=== PATIENT | male | born 1955 | race Caucasian/White ===

== ENCOUNTER 2020-07-22 17:37 | Emergency (ER) | payer OTHER ==
[~2020-07-22] VITALS: Ht 180.3 cm; Wt 84.0 kg
--- NOTE | 2020-07-22 18:18 | PHYS DOC ---
Past Medical History Past Medical History: Unknown Past Surgical History: Other Additional Past Surgical Histo: UNKNOWN Smoking Status: Unknown if ever smoked Alcohol Use: None Additional Information: UNKNOWN Social History Narrative: UNKNOWN General Adult EDM: Chief Complaint: ALTERED MENTAL STATUS HPI: HPI: Patient is a 64 year old male presents via ems for altered mental status. Neighbors wound patient laying down in his yard. It was suspected that patient feel off his porch-- approximately 3ft. Patient is alert but confused. Knows only his name. Patient does state he drank alcohol tonight. Moves all extremities without deformities. Abrasion on right anterior knee. Review of Systems: Review of Systems: unable to obtain history due to altered mental status Heart Score: Risk Factors: Risk Factors: DM, Current or recent (<one month) smoker, HTN, HLP, family history of CAD, obesity. Risk Scores: Score 0 - 3: 2.5% MACE over next 6 weeks - Discharge Home Score 4 - 6: 20.3% MACE over next 6 weeks - Admit for Clinical Observation Score 7 - 10: 72.7% MACE over next 6 weeks - Early Invasive Strategies Allergies: Allergies: Allergies Coded Allergies Type Severity Reaction Last Updated Verified Unable to Assess 07/22/20 No Physical Exam: PE: Constitutional: Well developed, well nourished, no acute distress, non-toxic appearance. [] HENT: Normocephalic, atraumatic, bilateral external ears normal, oropharynx moist, no oral exudates, nose normal. [] Eyes: PERRLA, EOMI, conjunctiva normal, no discharge. [] Neck: Normal range of motion, no tenderness, supple, no stridor. [] Cardiovascular:Heart rate regular rhythm, no murmur [] Lungs & Thorax: Bilateral breath sounds clear to auscultation [] Abdomen: Bowel sounds normal, soft, no tenderness, no masses, no pulsatile masses. [] Skin: Warm, dry, no erythema, no rash. [] Back: No tenderness, no CVA tenderness. [] Extremities: No tenderness, no cyanosis, no clubbing, ROM intact, no edema. [] Neurologic: Alert and oriented X 3, normal motor function, normal sensory function, no focal deficits noted. [] Psychologic: Affect normal, judgement normal, mood normal. [] Current Patient Data: Vital Signs: Vital Signs Date Time Temp Pulse Resp B/P (MAP) Pulse Ox O2 Delivery O2 Flow Rate FiO2 07/22/20 17:47 98.6 93 20 137/75 (95) 97 Room Air 98.6 EKG: EKG: [] Radiology/Procedures: Radiology/Procedures: [] Course & Med Decision Making: Course & Med Decision Making Pertinent Labs and Imaging studies reviewed. (See chart for details) []Patient observed. 2151-patient re-evaluated a/ox4 ambulated with steady gait. Patient to be discharged home. Anahi Disclaimer: Anahi Disclaimer: This electronic medical record was generated, in whole or in part, using a voice recognition dictation system. Departure Departure Impression: Primary Impression: Altered mental state Additional Impression: Alcohol intoxication Disposition: 01 DC HOME SELF CARE/HOMELESS Condition: STABLE Patient Instructions: Alcohol Intoxication KIET LIRIANO DO Jul 22, 2020 18:18
--- NOTE | 2020-07-22 18:36 | RAD ---
PQRS Compliance Statement: One or more of the following individualized dose reduction techniques were utilized for this examination: 1. Automated exposure control 2. Adjustment of the mA and/or kV according to patient size 3. Use of iterative reconstruction technique CT head without contrast 07/22/2020 5:57 PM INDICATION: Fall, altered mental status COMPARISON: None available TECHNIQUE: Multiple axial CT images of the head were obtained from skull base through the vertex without intravenous contrast. FINDINGS: Head: Ventricles, sulci and basal cisterns are prominent compatible with mild generalized cerebral volume loss. Low-attenuation in the periventricular white matter is suggestive of chronic small vessel ischemic changes. There is no hydrocephalus. Wagner-white matter differentiation is normal. There is no acute intracranial hemorrhage. There is no mass, mass effect or midline shift. Posterior fossa is normal in appearance. Visualized portions of the orbits are normal. Minimal aerated mucus identified in the lateral left maxillary sinus. Mastoid air cells are well aerated. Scalp and calvaria are normal. IMPRESSION: No acute intracranial hemorrhage. Mild generalized cerebral volume loss. Low-attenuation in the periventricular white matter is suggestive of chronic small vessel ischemic changes. Electronically signed by: Malena Andrade MD (07/22/2020 6:33 PM) [facility]
[2020-07-22 19:05] LABS: BASO # 0.1 x10^3/uL (0.0-0.2); BASO % 1 % (0-3); EOS % 1 % (0-3); HEMOGLOBIN 14.1 g/dL (13.0-17.5); LYMPH % 28 % (24-48); MEAN CORPUSCULAR HEMOGLOBIN 31 pg (25-35); MEAN CORPUSCULAR HGB CONC 34 g/dL (31-37); MEAN CORPUSCULAR VOLUME 91 fL (79-100); MONO # 0.5 x10^3/uL (0.0-1.1); MONO % 7 % (0-9); NEUT # 4.5 x10^3/uL (1.8-7.7); NEUT % 64 % (31-73); PLATELET COUNT 278 x10^3/uL (140-400); RED BLOOD COUNT 4.53 x10^6/uL (4.30-5.70); RED CELL DISTRIBUTION WIDTH 13.1 % (11.5-14.5); WHITE BLOOD COUNT 7.2 x10^3/uL (4.0-11.0)
[2020-07-22 19:13] LABS: CALCIUM 8.7 mg/dL (8.5-10.1); CREATININE 0.9 mg/dL (0.7-1.3); POTASSIUM 4.1 mmol/L (3.5-5.1)
[2020-07-22 19:20] LABS: ALBUMIN 3.8 g/dL (3.4-5.0); ALBUMIN/GLOBULIN RATIO 1.1 (1.0-1.7); TOTAL BILIRUBIN 0.1 mg/dL (0.2-1.0); TOTAL PROTEIN 7.3 g/dL (6.4-8.2)
[2020-07-22 22:12] VITALS: BP 133/56
== END 2020-07-22 22:41 | disposition home or self-care (01) ==
LOC: ER 17:37
DX: F10.229 Alcohol dependence with intoxication, unspecified (principal); R41.82 Altered mental status, unspecified
CPT/HCPCS: 36415; 70450; 80053; 85025; 99285; G0480

== ENCOUNTER 2020-08-22 10:26 | Inpatient (IN) | payer OTHER ==
[~2020-08-22] VITALS: Ht 180.3 cm; Wt 95.0 kg
[2020-08-22 10:45] LABS: BASO # 0.1 x10^3/uL (0.0-0.2); BASO % 1 % (0-3); EOS % 0 % (0-3); HEMATOCRIT 36.3 % (39.0-53.0); HEMOGLOBIN 11.8 g/dL (13.0-17.5); LYMPH # 0.5 x10^3/uL (1.0-4.8); LYMPH % 10 % (24-48); MEAN CORPUSCULAR HEMOGLOBIN 30 pg (25-35); MEAN CORPUSCULAR HGB CONC 33 g/dL (31-37); MEAN CORPUSCULAR VOLUME 93 fL (79-100); MONO # 0.5 x10^3/uL (0.0-1.1); MONO % 8 % (0-9); NEUT # 4.6 x10^3/uL (1.8-7.7); NEUT % 81 % (31-73); PLATELET COUNT 114 x10^3/uL (140-400); RED BLOOD COUNT 3.91 x10^6/uL (4.30-5.70); RED CELL DISTRIBUTION WIDTH 15.2 % (11.5-14.5); WHITE BLOOD COUNT 5.6 x10^3/uL (4.0-11.0)
[2020-08-22 10:57] LABS: BILIRUBIN,URINE NEGATIVE (NEG); CLARITY,URINE CLEAR; COLOR,URINE AMBER; NITRITE,URINE NEGATIVE (NEG); PH,URINE 5.5 (<5.0-8.0); PROTEIN,URINE 100 mg/dL (NEG-TRACE)
[2020-08-22] MEDS ORDERED: IV NORMAL SALINE 1000ML BAG 1,000 ML IV ONE ×2 (11:00)
[2020-08-22 11:03] LABS: AMPHETAMINE/METHAMPHETAMINE NEG (NEG); BARBITURATES NEG (NEG); BENZODIAZEPINES NEG (NEG); CANNABINOIDS NEG (NEG); COCAINE NEG (NEG); METHADONE NEG (NEG); OPIATES NEG (NEG); PHENCYCLIDINE NEG (NEG)
[2020-08-22] MEDS: NOREPINEPHRINE VIAL 8 MG in IV DEXTROSE 5% 250 ML IV PRN ×4 (11:06→17:48)
[2020-08-22 11:07] LABS: BACTERIA,URINE 0 /HPF (0-FEW); WBC,URINE 0 /HPF (0-4)
[2020-08-22] MEDS ORDERED: EPINEPHrine SYRINGE 1 MG/10 ML SYRINGE ONE (11:07)
[2020-08-22] MEDS: MIDAZOLAM 100mg/100ml NS BAG 100 ML IV PRN ×2 (11:10→15:18)
[2020-08-22 11:14] LABS: ALBUMIN 3.4 g/dL (3.4-5.0); ALBUMIN/GLOBULIN RATIO 1.1 (1.0-1.7); CALCIUM 7.6 mg/dL (8.5-10.1); CREATININE 2.5 mg/dL (0.7-1.3); GFR 26.1; POTASSIUM 4.1 mmol/L (3.5-5.1); TOTAL BILIRUBIN 0.9 mg/dL (0.2-1.0); TOTAL PROTEIN 6.4 g/dL (6.4-8.2)
--- NOTE | 2020-08-22 11:20 | RAD ---
AP chest. HISTORY: Intubated AP view was taken of the chest. Endotracheal tube is in good position at the level aortic arch. NG tube extends into the stomach. There are slight left perihilar infiltrates although mild chronic interstitial changes possible.. There is no old study for comparison. There is no pneumothorax or pleural effusion. IMPRESSION: 1. Endotracheal tube and NG tube in good position. 2. Slight left perihilar infiltrates versus mild chronic interstitial change. Electronically signed by: Jovan Garner MD (08/22/2020 11:17 AM) [id number]
--- NOTE | 2020-08-22 12:07 | ED.ADGEN ---
Past Medical History Past Medical History: Unknown Past Surgical History: Other Additional Past Surgical Histo: UNKNOWN Smoking Status: Unknown if ever smoked Alcohol Use: None General Adult EDM: Chief Complaint: ALTERED MENTAL STATUS HPI: HPI: Patient is a 64 year old male brought in by EMS from home. Patient's friends found him down in supine position in his home. Per EMS report nobody had talked over the past few weeks. Patient has a GCS of 3, agonal breathing, signs of prolonged downtime due to multiple pressure sores. History otherwise limited due to acuity of patient's condition. No previous medical history on file, no known family or contacts. Review of Systems: Review of Systems: Unable to assess due to patient condition Current Medications: Current Medications Medications (Trade) Dose Ordered Sig/Mery Start Time Stop Time Status Last Admin Dose Admin Epinephrine HCl (EPINEPHrine SYRINGE) 1 mg STK-MED ONCE 08/22/20 11:07 08/22/20 11:08 DC Fentanyl Citrate (Fentanyl 2ml Vial) 50 mcg PRN Q1HR PRN 08/22/20 12:30 08/23/20 12:29 08/22/20 12:30 50 MCG Midazolam HCl 100 ml @ 0 mls/hr CONT PRN PRN 08/22/20 11:00 Norepinephrine Bitartrate 8 mg/ Dextrose 258 ml @ 18.383 mls/ hr CONT PRN PRN 08/22/20 10:30 Allergies: Allergies: Allergies Coded Allergies Type Severity Reaction Last Updated Verified Unable to Assess 07/22/20 No Physical Exam: PE: Constitutional: Well developed, well nourished, unresponsive HENT: Mild swelling around right eye but no other signs of trauma Eyes: Subconjunctival hemorrhage of right eye, right pupil 5 mm, left pupil 3 mm Neck: Normal range of motion, no tenderness, supple, no stridor. [] Cardiovascular:Heart rate regular rhythm, no murmur [] Lungs & Thorax: Lateral coarse breath sounds Abdomen: Soft, nondistended Skin: Erythematous blanching areas consistent with pressure ulcers on right face, right shoulder, grate-like lesions on abdomen, contusions to bilateral knees Back: No deformities Extremities: No deformity Neurologic: GCS Psychologic: Unable to assess Current Patient Data: Labs: Laboratory Tests Test 08/22/20 10:31 08/22/20 10:40 White Blood Count 5.6 x10^3/uL (4.0-11.0) Red Blood Count 3.91 x10^6/uL (4.30-5.70) L Hemoglobin 11.8 g/dL (13.0-17.5) L Hematocrit 36.3 % (39.0-53.0) L Mean Corpuscular Volume 93 fL (79-100) Mean Corpuscular Hemoglobin 30 pg (25-35) Mean Corpuscular Hemoglobin Concent 33 g/dL (31-37) Red Cell Distribution Width 15.2 % (11.5-14.5) H Platelet Count 114 x10^3/uL (140-400) L Neutrophils (%) (Auto) 81 % (31-73) H Lymphocytes (%) (Auto) 10 % (24-48) L Monocytes (%) (Auto) 8 % (0-9) Eosinophils (%) (Auto) 0 % (0-3) Basophils (%) (Auto) 1 % (0-3) Neutrophils # (Auto) 4.6 x10^3/uL (1.8-7.7) Lymphocytes # (Auto) 0.5 x10^3/uL (1.0-4.8) L Monocytes # (Auto) 0.5 x10^3/uL (0.0-1.1) Eosinophils # (Auto) 0.0 x10^3/uL (0.0-0.7) Basophils # (Auto) 0.1 x10^3/uL (0.0-0.2) Prothrombin Time 15.4 SEC (11.7-14.0) H Prothrombin Time INR 1.3 (0.8-1.1) H Sodium Level 128 mmol/L (136-145) L Potassium Level 4.1 mmol/L (3.5-5.1) Chloride Level 84 mmol/L (98-107) L Carbon Dioxide Level 7 mmol/L (21-32) *L Anion Gap 37 (6-14) H Blood Urea Nitrogen 48 mg/dL (8-26) H Creatinine 2.5 mg/dL (0.7-1.3) H Estimated GFR (Cockcroft-Gault) 26.1 BUN/Creatinine Ratio 19 (6-20) Glucose Level 169 mg/dL (70-99) H Lactic Acid Level 6.8 mmol/L (0.4-2.0) *H Calcium Level 7.6 mg/dL (8.5-10.1) L Total Bilirubin 0.9 mg/dL (0.2-1.0) Aspartate Amino Transferase (AST) 471 U/L (15-37) H Alanine Aminotransferase (ALT) 126 U/L (16-63) H Alkaline Phosphatase 90 U/L (46-116) Ammonia 73 mcmol/L (11-34) H Troponin I Quantitative 0.062 ng/mL (0.000-0.055) Total Protein 6.4 g/dL (6.4-8.2) Albumin 3.4 g/dL (3.4-5.0) Albumin/Globulin Ratio 1.1 (1.0-1.7) Urine Collection Type Unknown Urine Color Ro Urine Clarity Clear Urine pH 5.5 (<5.0-8.0) Urine Specific [place] 1.015 (1.000-1.030) Urine Protein 100 mg/dL (NEG-TRACE) Urine Glucose (UA) Negative mg/dL (NEG) Urine Ketones (Stick) 15 mg/dL (NEG) Urine Blood Large (NEG) Urine Nitrite Negative (NEG) Urine Bilirubin Negative (NEG) Urine Urobilinogen Dipstick 1.0 mg/dL (0.2 mg/dL) Urine Leukocyte Esterase Negative (NEG) Urine RBC 6-10 /HPF (0-2) Urine WBC 0 /HPF (0-4) Urine Bacteria 0 /HPF (0-FEW) Urine Opiates Screen Neg (NEG) Urine Methadone Screen Neg (NEG) Urine Barbiturates Neg (NEG) Urine Phencyclidine Screen Neg (NEG) Urine Amphetamine/Methamphetamine Neg (NEG) Urine Benzodiazepines Screen Neg (NEG) Urine Cocaine Screen Neg (NEG) Urine Cannabinoids Screen Neg (NEG) Urine Ethyl Alcohol Pos (NEG) Laboratory Tests 08/22/20 10:31 Laboratory Tests 08/22/20 10:31 Vital Signs: Vital Signs Date Time Temp Pulse Resp B/P (MAP) Pulse Ox O2 Delivery O2 Flow Rate FiO2 08/22/20 12:40 96 Ventilator 08/22/20 12:30 30 08/22/20 10:26 85.8 64 111/62 (78) 15.0 85.8 EKG: EKG: Sinus rhythm, heart rate 62, Q waves present in leads II, III, and aVF. T wave inversion in lead III, no signs of ST elevation or depression, normal intervals, no ectopy, normal axis [] Heart Score: Risk Factors: Risk Factors: DM, Current or recent (<one month) smoker, HTN, HLP, family history of CAD, obesity. Risk Scores: Score 0 - 3: 2.5% MACE over next 6 weeks - Discharge Home Score 4 - 6: 20.3% MACE over next 6 weeks - Admit for Clinical Observation Score 7 - 10: 72.7% MACE over next 6 weeks - Early Invasive Strategies Radiology/Procedures: Radiology/Procedures: EXAM: CT Head without IV contrast INDICATION: fall TECHNIQUE: Multi-detector row CT images were obtained of the head without the use of IV contrast. All CT scans performed at this facility utilize dose optimization techniques as appropriate to the exam, including the following: Automated exposure control and adjustment of the mA and/or KV according to patient size (this includes techniques or standardized protocols for targeted exams where dose is indication/reason for exam). COMPARISON: Noncontrast head CT 07/22/2020 FINDINGS: BRAIN PARENCHYMA: Posterior right temporal lobe intraparenchymal hemorrhage is present along with loss of hughes-white differentiation in the right occipital lobe consistent with an evolving acute PLATINUM AND PALLADIUM KETTLE TENDER territory infarct. Additional areas of abnormal hypoattenuation are present involving the majority of the right cerebral hemisphere, the paracentral superior left frontal lobe, the brainstem and the majority of the left cerebellum. There is subfalcine herniation with 2.6 cm of [id number] midline shift. VENTRICLES & EXTRA-AXIAL SPACES: The right lateral ventricle is almost completely effaced. The left lateral ventricle is slitlike in the body and dilated in the occipital horn. A fluid fluid level is present in the dilated left occipital horn, consistent with evolving blood. The basal cisterns almost completely effaced acute hemorrhage is present in the ambient cisterns there is a 2 cm deep evolving acute subdural hematoma. ORBITS: Orbital contents are unremarkable. SINUSES: Air-fluid levels in the bilateral paranasal sinuses are present. OSSEOUS & SOFT TISSUES: No acute fracture is identified. IMPRESSION: Extensive changes of hypoxic ischemic encephalopathy involving the right greater than left cerebral hemispheres, brainstem and left cerebellum, along with intraparenchymal hemorrhage in the right temporal lobe as well as extensive subarachnoid hemorrhage and a large right subdural hematoma associated with marked right to left midline shift. EXAM: CT Cervical Spine without IV contrast INDICATION: Reason: fall / Spl. Instructions: / History: TECHNIQUE: Multi-detector row CT images were obtained through the cervical spine without the use of IV contrast. Post-processing sagittal and coronal reconstructed images were obtained for interpretation. All CT scans performed at this facility utilize dose optimization techniques as appropriate to the exam, including the following: Automated exposure control and adjustment of the mA and/or KV according to patient size (this includes techniques or standardized protocols for targeted exams where dose is indication/reason for exam). COMPARISON: None FINDINGS: CRANIOCERVICAL JUNCTION: Unremarkable. ALIGNMENT: Alignment is within normal limits. OSSEOUS: No evidence of fracture or bone destruction. DISC SPACES: Degenerative changes at C5-C6. FACET JOINTS: Mild bilateral facet hypertrophy, more conspicuous on the left at the C3-C4 and C4-C5 levels. SPINAL CANAL: Unremarkable. NEUROFORAMINA: Unremarkable. SOFT TISSUES: Patient is intubated and has an enteric tube in place. Coronary calcifications are incidentally noted. IMPRESSION: No acute findings on CT of the cervical spine. EXAM: CT Chest, Abdomen, and Pelvis without IV contrast INDICATION: Reason: fall / Spl. Instructions: / History: TECHNIQUE: Multi-detector row CT images were acquired from the thoracic inlet through the ischial tuberosities with the use of IV contrast. Sagittal and coronal images were acquired from the transaxial data. All CT scans performed at this facility utilize dose optimization techniques as appropriate to the exam, including the following: Automated exposure control and adjustment of the mA and/or KV according to patient size (this includes techniques or standardized protocols for targeted exams where dose is indication/reason for exam). IV CONTRAST: Not administered ORAL CONTRAST: Not administered COMPARISON: None FINDINGS: CHEST: CARDIOVASCULAR: Dense coronary calcifications. Normal heart size. No pericardial effusion. Normal caliber thoracic aorta with scattered calcifications. No aneurysm or intramural hematoma shown. MEDIASTINUM & NATALIE: No adenopathy or masses. Patient is intubated. ET tube terminates 1.8 cm above the eduardo, likely in satisfactory position. LUNGS: Minimal paraseptal pattern emphysematous changes in the upper lobes. Bilateral patchy groundglass opacities. Mild diffuse peribronchial thickening also noted. PLEURAL SPACE: No pleural effusions or pneumothorax. OSSEOUS & SOFT TISSUE: Multiple old anterior left greater than right rib fractures. ABDOMEN/PELVIS: LIVER: Diffuse hypoattenuation, compatible fatty infiltration.. BILIARY SYSTEM: Gallbladder is unremarkable. Bile ducts are not dilated. PANCREAS: Minimal peripancreatic stranding, nonspecific but could reflect pancreatitis in the appropriate clinical context. No ductal dilation. No fluid collection. SPLEEN: Unremarkable ADRENALS: Unremarkable KIDNEYS & URETERS: Unremarkable BLADDER: Contains Murphy catheter, and partially decompressed. REPRODUCTIVE ORGANS: Unremarkable GASTROINTESTINAL: Fluid-filled stomach. Enteric tube terminates in the distal gastric body. Stomach, small bowel, and colon are otherwise unremarkable. The appendix is normal. MESENTERY/PERITONEUM/RETROPERITONEUM: Unremarkable VASCULAR: Scattered arterial calcifications. No aneurysm. LYMPH NODES: No adenopathy OSSEOUS & SOFT TISSUES: Unremarkable IMPRESSION: 1. Multifocal bilateral patchy groundglass opacities in the lungs, nonspecific and could reflect aspiration pneumonitis. Atypical pneumonia is not excluded. 2. Enteric tube placement and endotracheal intubation in apparent satisfactory position. EXAM: CT Head without IV contrast INDICATION: fall TECHNIQUE: Multi-detector row CT images were obtained of the head without the use of IV contrast. All CT scans performed at this facility utilize dose optimization techniques as appropriate to the exam, including the following: Automated exposure control and adjustment of the mA and/or KV according to patient size (this includes techniques or standardized protocols for targeted exams where dose is indication/reason for exam). COMPARISON: Noncontrast head CT 07/22/2020 FINDINGS: BRAIN PARENCHYMA: Posterior right temporal lobe intraparenchymal hemorrhage is present along with loss of hughes-white differentiation in the right occipital lobe consistent with an evolving acute PLATINUM AND PALLADIUM KETTLE TENDER territory infarct. Additional areas of abnormal hypoattenuation are present involving the majority of the right cerebral hemisphere, the paracentral superior left frontal lobe, the brainstem and the majority of the left cerebellum. There is subfalcine herniation with 2.6 cm of [id number] midline shift. VENTRICLES & EXTRA-AXIAL SPACES: The right lateral ventricle is almost completely effaced. The left lateral ventricle is slitlike in the body and dilated in the occipital horn. A fluid fluid level is present in the dilated left occipital horn, consistent with evolving blood. The basal cisterns almost completely effaced acute hemorrhage is present in the ambient cisterns there is a 2 cm deep evolving acute subdural hematoma. ORBITS: Orbital contents are unremarkable. SINUSES: Air-fluid levels in the bilateral paranasal sinuses are present. OSSEOUS & SOFT TISSUES: No acute fracture is identified. IMPRESSION: Extensive changes of hypoxic ischemic encephalopathy involving the right greater than left cerebral hemispheres, brainstem and left cerebellum, along with intraparenchymal hemorrhage in the right temporal lobe as well as extensive subarachnoid hemorrhage and a large right subdural hematoma associated with marked right to left midline shift. EXAM: CT Cervical Spine without IV contrast INDICATION: Reason: fall / Spl. Instructions: / History: TECHNIQUE: Multi-detector row CT images were obtained through the cervical spine without the use of IV contrast. Post-processing sagittal and coronal reconstructed images were obtained for interpretation. All CT scans performed at this facility utilize dose optimization techniques as appropriate to the exam, including the following: Automated exposure control and adjustment of the mA and/or KV according to patient size (this includes techniques or standardized protocols for targeted exams where dose is indication/reason for exam). COMPARISON: None FINDINGS: CRANIOCERVICAL JUNCTION: Unremarkable. ALIGNMENT: Alignment is within normal limits. OSSEOUS: No evidence of fracture or bone destruction. DISC SPACES: Degenerative changes at C5-C6. FACET JOINTS: Mild bilateral facet hypertrophy, more conspicuous on the left at the C3-C4 and C4-C5 levels. SPINAL CANAL: Unremarkable. NEUROFORAMINA: Unremarkable. SOFT TISSUES: Patient is intubated and has an enteric tube in place. Coronary calcifications are incidentally noted. IMPRESSION: No acute findings on CT of the cervical spine. EXAM: CT Chest, Abdomen, and Pelvis without IV contrast INDICATION: Reason: fall / Spl. Instructions: / History: TECHNIQUE: Multi-detector row CT images were acquired from the thoracic inlet through the ischial tuberosities with the use of IV contrast. Sagittal and coronal images were acquired from the transaxial data. All CT scans performed at this facility utilize dose optimization techniques as appropriate to the exam, including the following: Automated exposure control and adjustment of the mA and/or KV according to patient size (this includes techniques or standardized protocols for targeted exams where dose is indication/reason for exam). IV CONTRAST: Not administered ORAL CONTRAST: Not administered COMPARISON: None FINDINGS: CHEST: CARDIOVASCULAR: Dense coronary calcifications. Normal heart size. No pericardial effusion. Normal caliber thoracic aorta with scattered calcifications. No aneurysm or intramural hematoma shown. MEDIASTINUM & NATALIE: No adenopathy or masses. Patient is intubated. ET tube terminates 1.8 cm above the eduardo, likely in satisfactory position. LUNGS: Minimal paraseptal pattern emphysematous changes in the upper lobes. Bilateral patchy groundglass opacities. Mild diffuse peribronchial thickening also noted. PLEURAL SPACE: No pleural effusions or pneumothorax. OSSEOUS & SOFT TISSUE: Multiple old anterior left greater than right rib fractures. ABDOMEN/PELVIS: LIVER: Diffuse hypoattenuation, compatible fatty infiltration.. BILIARY SYSTEM: Gallbladder is unremarkable. Bile ducts are not dilated. PANCREAS: Minimal peripancreatic stranding, nonspecific but could reflect pancreatitis in the appropriate clinical context. No ductal dilation. No fluid collection. SPLEEN: Unremarkable ADRENALS: Unremarkable KIDNEYS & URETERS: Unremarkable BLADDER: Contains Murphy catheter, and partially decompressed. REPRODUCTIVE ORGANS: Unremarkable GASTROINTESTINAL: Fluid-filled stomach. Enteric tube terminates in the distal gastric body. Stomach, small bowel, and colon are otherwise unremarkable. The appendix is normal. MESENTERY/PERITONEUM/RETROPERITONEUM: Unremarkable VASCULAR: Scattered arterial calcifications. No aneurysm. LYMPH NODES: No adenopathy OSSEOUS & SOFT TISSUES: Unremarkable IMPRESSION: 1. Multifocal bilateral patchy groundglass opacities in the lungs, nonspecific and could reflect aspiration pneumonitis. Atypical pneumonia is not excluded. 2. Enteric tube placement and endotracheal intubation in apparent satisfactory position. [] Impression: Patient intubated with 7.5 ET tube, MAC 4 glide scope by computer numerical control operator student under my supervision. Patient was sedated and paralyzed with etomidate and succinylcholine. Course & Med Decision Making: Course & Med Decision Making Pertinent Labs and Imaging studies reviewed. (See chart for details) Discussed patient with neurosurgery, they do not believe that any intervention will be beneficial to the patient. Discussed with neurology who will follow, admitted to ICU. [] Anahi Disclaimer: Anahi Disclaimer: This electronic medical record was generated, in whole or in part, using a voice recognition dictation system. Departure Departure Impression: Primary Impression: Subdural hematoma Additional Impression: Subarachnoid hemorrhage Disposition: 09 ADMITTED INPT THIS HOSP Admitting Physician: HIMShaun Condition: CRITICAL Referrals: UNKNOWN PCP NAME (PCP) Critical Care Time Critical care time was45 minutes exclusive of procedures. Problem Qualifiers MERA DURAND MD Aug 22, 2020 12:06
--- NOTE | 2020-08-22 12:21 | RAD ---
EXAM: CT Head without IV contrast INDICATION: fall TECHNIQUE: Multi-detector row CT images were obtained of the head without the use of IV contrast. All CT scans performed at this facility utilize dose optimization techniques as appropriate to the exam, including the following: Automated exposure control and adjustment of the mA and/or KV according to patient size (this includes techniques or standardized protocols for targeted exams where dose is indication/reason for exam). COMPARISON: Noncontrast head CT 07/22/2020 FINDINGS: BRAIN PARENCHYMA: Posterior right temporal lobe intraparenchymal hemorrhage is present along with loss of hughes-white differentiation in the right occipital lobe consistent with an evolving acute SHINGLE CARRIER territory infarct. Additional areas of abnormal hypoattenuation are present involving the majority of the right cerebral hemisphere, the paracentral superior left frontal lobe, the brainstem and the majority of the left cerebellum. There is subfalcine herniation with 2.6 cm of [id number] midline shift. VENTRICLES & EXTRA-AXIAL SPACES: The right lateral ventricle is almost completely effaced. The left lateral ventricle is slitlike in the body and dilated in the occipital horn. A fluid fluid level is present in the dilated left occipital horn, consistent with evolving blood. The basal cisterns almost completely effaced acute hemorrhage is present in the ambient cisterns there is a 2 cm deep evolving acute subdural hematoma. ORBITS: Orbital contents are unremarkable. SINUSES: Air-fluid levels in the bilateral paranasal sinuses are present. OSSEOUS & SOFT TISSUES: No acute fracture is identified. IMPRESSION: Extensive changes of hypoxic ischemic encephalopathy involving the right greater than left cerebral hemispheres, brainstem and left cerebellum, along with intraparenchymal hemorrhage in the right temporal lobe as well as extensive subarachnoid hemorrhage and a large right subdural hematoma associated with marked right to left midline shift. EXAM: CT Cervical Spine without IV contrast INDICATION: Reason: fall / Spl. Instructions: / History: TECHNIQUE: Multi-detector row CT images were obtained through the cervical spine without the use of IV contrast. Post-processing sagittal and coronal reconstructed images were obtained for interpretation. All CT scans performed at this facility utilize dose optimization techniques as appropriate to the exam, including the following: Automated exposure control and adjustment of the mA and/or KV according to patient size (this includes techniques or standardized protocols for targeted exams where dose is indication/reason for exam). COMPARISON: None FINDINGS: CRANIOCERVICAL JUNCTION: Unremarkable. ALIGNMENT: Alignment is within normal limits. OSSEOUS: No evidence of fracture or bone destruction. DISC SPACES: Degenerative changes at C5-C6. FACET JOINTS: Mild bilateral facet hypertrophy, more conspicuous on the left at the C3-C4 and C4-C5 levels. SPINAL CANAL: Unremarkable. NEUROFORAMINA: Unremarkable. SOFT TISSUES: Patient is intubated and has an enteric tube in place. Coronary calcifications are incidentally noted. IMPRESSION: No acute findings on CT of the cervical spine. EXAM: CT Chest, Abdomen, and Pelvis without IV contrast INDICATION: Reason: fall / Spl. Instructions: / History: TECHNIQUE: Multi-detector row CT images were acquired from the thoracic inlet through the ischial tuberosities with the use of IV contrast. Sagittal and coronal images were acquired from the transaxial data. All CT scans performed at this facility utilize dose optimization techniques as appropriate to the exam, including the following: Automated exposure control and adjustment of the mA and/or KV according to patient size (this includes techniques or standardized protocols for targeted exams where dose is indication/reason for exam). IV CONTRAST: Not administered ORAL CONTRAST: Not administered COMPARISON: None FINDINGS: CHEST: CARDIOVASCULAR: Dense coronary calcifications. Normal heart size. No pericardial effusion. Normal caliber thoracic aorta with scattered calcifications. No aneurysm or intramural hematoma shown. MEDIASTINUM & NATALIE: No adenopathy or masses. Patient is intubated. ET tube terminates 1.8 cm above the eduardo, likely in satisfactory position. LUNGS: Minimal paraseptal pattern emphysematous changes in the upper lobes. Bilateral patchy groundglass opacities. Mild diffuse peribronchial thickening also noted. PLEURAL SPACE: No pleural effusions or pneumothorax. OSSEOUS & SOFT TISSUE: Multiple old anterior left greater than right rib fractures. ABDOMEN/PELVIS: LIVER: Diffuse hypoattenuation, compatible fatty infiltration.. BILIARY SYSTEM: Gallbladder is unremarkable. Bile ducts are not dilated. PANCREAS: Minimal peripancreatic stranding, nonspecific but could reflect pancreatitis in the appropriate clinical context. No ductal dilation. No fluid collection. SPLEEN: Unremarkable ADRENALS: Unremarkable KIDNEYS & URETERS: Unremarkable BLADDER: Contains Murphy catheter, and partially decompressed. REPRODUCTIVE ORGANS: Unremarkable GASTROINTESTINAL: Fluid-filled stomach. Enteric tube terminates in the distal gastric body. Stomach, small bowel, and colon are otherwise unremarkable. The appendix is normal. MESENTERY/PERITONEUM/RETROPERITONEUM: Unremarkable VASCULAR: Scattered arterial calcifications. No aneurysm. LYMPH NODES: No adenopathy OSSEOUS & SOFT TISSUES: Unremarkable IMPRESSION: 1. Multifocal bilateral patchy groundglass opacities in the lungs, nonspecific and could reflect aspiration pneumonitis. Atypical pneumonia is not excluded. 2. Enteric tube placement and endotracheal intubation in apparent satisfactory position. FOR INTERNAL CODING PURPOSES Critical result: Intracranial Findings discussed with MERA DURAND at 08/22/2020 11:38 AM. I called back to discuss the additional lung findings at 12:03 PM on 08/22/2020. RESULT CODE: (C) Electronically signed by: Beverly Alexander MD (08/22/2020 12:17 PM) [id number]
[2020-08-22] MEDS: fentaNYL PF VIAL 100 MCG/2 ML VIAL IV PRN ×2 (12:30→13:40)
[2020-08-22 12:38] LABS: PROTHROMBIN TIME PATIENT 15.4 SEC (11.7-14.0)
--- NOTE | 2020-08-22 12:58 | PDOC2 ---
NEUROLOGY CONSULT Date of Service DOS: DATE: 08/22/20 TIME: 12:50 Reason for Consult Reason for Consult: Intracranial hemorrhages Referring Physician Referring Physician: Hospitalist Source Source: Chart review History of Present Illness History of Present Illness Patient is a 64-year-old male found down unresponsive. He has multiple intracranial hemorrhages as described on the CT report below. He has a urine drug screen positive for alcohol. There are also chest CT changes of Covid. No further history is available, except I see he was in the emergency department here on 07/22 with an alcohol level of 360 and he was homeless at that time. Past Medical History Psych: Addictions Past Surgical History Past Surgical History: No pertinent history Family History Family History: No pertinent hx Social History Social History Alcohol abuse, homeless Current Medications Current Medications Current Medications Midazolam HCl 100 ml @ 0 mls/hr CONT PRN PRN IV SEE I/O RECORD; Start 08/22/20 at 11:00 Epinephrine HCl (EPINEPHrine SYRINGE) 1 mg STK-MED ONCE .ROUTE ; Start 08/22/20 at 11:07; Stop 08/22/20 at 11:08; Status DC Norepinephrine Bitartrate 8 mg/ Dextrose 258 ml @ 18.383 mls/ hr CONT PRN PRN IV ELEVATED BP, SEE COMMENTS; Start 08/22/20 at 10:30 Fentanyl Citrate (Fentanyl 2ml Vial) 50 mcg PRN Q1HR PRN IV PAIN Last administered on 08/22/20at 12:30; Start 08/22/20 at 12:30; Stop 08/23/20 at 12:29 Allergies Allergies: Coded Allergies: Unable to Assess (Unverified , 07/22/20) PT CONFUSED, NOT ANSWERING QUESTIONS AT THIS TIME ROS Review of System Unobtainable Physical Exam Physical Examination General: Well-developed, well-nourished white male in no acute distress HEENT: Normocephalic right eye conjunctival hemorrhage. Tympanic membranes clear.Temporal arteriespulsatile and nontender. Neck: Supple without bruit, no meningismus Musculoskeletal: Stability:see neurologic. Gait exam:see neurologic. Tone:see neurolo gic.Strength:see neurologic. Neurological: visual scott are full to confrontation. Facial sensation is normal. There is no facial asymmetry. All other cranial related problems are negative except as mentioned before.Reflexes:2+ and symmetric with flexor plantar responses. Motor:No response to pain. Coordination and gait:Not cooperative. Sensory:Not cooperative Vitals VITALS Vital Signs Date Time Temp Pulse Resp B/P (MAP) Pulse Ox O2 Delivery O2 Flow Rate FiO2 08/22/20 12:40 96 Ventilator 08/22/20 12:30 30 08/22/20 10:26 85.8 64 111/62 (78) 15.0 85.8 Labs Labs Laboratory Tests Test 08/22/20 10:31 08/22/20 10:40 White Blood Count 5.6 x10^3/uL (4.0-11.0) Red Blood Count 3.91 x10^6/uL (4.30-5.70) Hemoglobin 11.8 g/dL (13.0-17.5) Hematocrit 36.3 % (39.0-53.0) Mean Corpuscular Volume 93 fL (79-100) Mean Corpuscular Hemoglobin 30 pg (25-35) Mean Corpuscular Hemoglobin Concent 33 g/dL (31-37) Red Cell Distribution Width 15.2 % (11.5-14.5) Platelet Count 114 x10^3/uL (140-400) Neutrophils (%) (Auto) 81 % (31-73) Lymphocytes (%) (Auto) 10 % (24-48) Monocytes (%) (Auto) 8 % (0-9) Eosinophils (%) (Auto) 0 % (0-3) Basophils (%) (Auto) 1 % (0-3) Neutrophils # (Auto) 4.6 x10^3/uL (1.8-7.7) Lymphocytes # (Auto) 0.5 x10^3/uL (1.0-4.8) Monocytes # (Auto) 0.5 x10^3/uL (0.0-1.1) Eosinophils # (Auto) 0.0 x10^3/uL (0.0-0.7) Basophils # (Auto) 0.1 x10^3/uL (0.0-0.2) Prothrombin Time 15.4 SEC (11.7-14.0) Prothromb Time International Ratio 1.3 (0.8-1.1) Sodium Level 128 mmol/L (136-145) Potassium Level 4.1 mmol/L (3.5-5.1) Chloride Level 84 mmol/L (98-107) Carbon Dioxide Level 7 mmol/L (21-32) Anion Gap 37 (6-14) Blood Urea Nitrogen 48 mg/dL (8-26) Creatinine 2.5 mg/dL (0.7-1.3) Estimated GFR (Cockcroft-Gault) 26.1 BUN/Creatinine Ratio 19 (6-20) Glucose Level 169 mg/dL (70-99) Lactic Acid Level 6.8 mmol/L (0.4-2.0) Calcium Level 7.6 mg/dL (8.5-10.1) Total Bilirubin 0.9 mg/dL (0.2-1.0) Aspartate Amino Transf (AST/SGOT) 471 U/L (15-37) Alanine Aminotransferase (ALT/SGPT) 126 U/L (16-63) Alkaline Phosphatase 90 U/L (46-116) Ammonia 73 mcmol/L (11-34) Troponin I Quantitative 0.062 ng/mL (0.000-0.055) Total Protein 6.4 g/dL (6.4-8.2) Albumin 3.4 g/dL (3.4-5.0) Albumin/Globulin Ratio 1.1 (1.0-1.7) Urine Collection Type Unknown Urine Color Ro Urine Clarity Clear Urine pH 5.5 (<5.0-8.0) Urine Specific [place] 1.015 (1.000-1.030) Urine Protein 100 mg/dL (NEG-TRACE) Urine Glucose (UA) Negative mg/dL (NEG) Urine Ketones (Stick) 15 mg/dL (NEG) Urine Blood Large (NEG) Urine Nitrite Negative (NEG) Urine Bilirubin Negative (NEG) Urine Urobilinogen Dipstick 1.0 mg/dL (0.2 mg/dL) Urine Leukocyte Esterase Negative (NEG) Urine RBC 6-10 /HPF (0-2) Urine WBC 0 /HPF (0-4) Urine Bacteria 0 /HPF (0-FEW) Urine Opiates Screen Neg (NEG) Urine Methadone Screen Neg (NEG) Urine Barbiturates Neg (NEG) Urine Phencyclidine Screen Neg (NEG) Urine Amphetamine/Methamphetamine Neg (NEG) Urine Benzodiazepines Screen Neg (NEG) Urine Cocaine Screen Neg (NEG) Urine Cannabinoids Screen Neg (NEG) Urine Ethyl Alcohol Pos (NEG) Laboratory Tests Test 08/22/20 10:31 11/18/20 10:40 White Blood Count 5.6 x10^3/uL (4.0-11.0) Red Blood Count 3.91 x10^6/uL (4.30-5.70) Hemoglobin 11.8 g/dL (13.0-17.5) Hematocrit 36.3 % (39.0-53.0) Mean Corpuscular Volume 93 fL (79-100) Mean Corpuscular Hemoglobin 30 pg (25-35) Mean Corpuscular Hemoglobin Concent 33 g/dL (31-37) Red Cell Distribution Width 15.2 % (11.5-14.5) Platelet Count 114 x10^3/uL (140-400) Neutrophils (%) (Auto) 81 % (31-73) Lymphocytes (%) (Auto) 10 % (24-48) Monocytes (%) (Auto) 8 % (0-9) Eosinophils (%) (Auto) 0 % (0-3) Basophils (%) (Auto) 1 % (0-3) Neutrophils # (Auto) 4.6 x10^3/uL (1.8-7.7) Lymphocytes # (Auto) 0.5 x10^3/uL (1.0-4.8) Monocytes # (Auto) 0.5 x10^3/uL (0.0-1.1) Eosinophils # (Auto) 0.0 x10^3/uL (0.0-0.7) Basophils # (Auto) 0.1 x10^3/uL (0.0-0.2) Prothrombin Time 15.4 SEC (11.7-14.0) Prothromb Time International Ratio 1.3 (0.8-1.1) Sodium Level 128 mmol/L (136-145) Potassium Level 4.1 mmol/L (3.5-5.1) Chloride Level 84 mmol/L (98-107) Carbon Dioxide Level 7 mmol/L (21-32) Anion Gap 37 (6-14) Blood Urea Nitrogen 48 mg/dL (8-26) Creatinine 2.5 mg/dL (0.7-1.3) Estimated GFR (Cockcroft-Gault) 26.1 BUN/Creatinine Ratio 19 (6-20) Glucose Level 169 mg/dL (70-99) Lactic Acid Level 6.8 mmol/L (0.4-2.0) Calcium Level 7.6 mg/dL (8.5-10.1) Total Bilirubin 0.9 mg/dL (0.2-1.0) Aspartate Amino Transf (AST/SGOT) 471 U/L (15-37) Alanine Aminotransferase (ALT/SGPT) 126 U/L (16-63) Alkaline Phosphatase 90 U/L (46-116) Ammonia 73 mcmol/L (11-34) Troponin I Quantitative 0.062 ng/mL (0.000-0.055) Total Protein 6.4 g/dL (6.4-8.2) Albumin 3.4 g/dL (3.4-5.0) Albumin/Globulin Ratio 1.1 (1.0-1.7) Urine Collection Type Unknown Urine Color Ro Urine Clarity Clear Urine pH 5.5 (<5.0-8.0) Urine Specific [place] 1.015 (1.000-1.030) Urine Protein 100 mg/dL (NEG-TRACE) Urine Glucose (UA) Negative mg/dL (NEG) Urine Ketones (Stick) 15 mg/dL (NEG) Urine Blood Large (NEG) Urine Nitrite Negative (NEG) Urine Bilirubin Negative (NEG) Urine Urobilinogen Dipstick 1.0 mg/dL (0.2 mg/dL) Urine Leukocyte Esterase Negative (NEG) Urine RBC 6-10 /HPF (0-2) Urine WBC 0 /HPF (0-4) Urine Bacteria 0 /HPF (0-FEW) Urine Opiates Screen Neg (NEG) Urine Methadone Screen Neg (NEG) Urine Barbiturates Neg (NEG) Urine Phencyclidine Screen Neg (NEG) Urine Amphetamine/Methamphetamine Neg (NEG) Urine Benzodiazepines Screen Neg (NEG) Urine Cocaine Screen Neg (NEG) Urine Cannabinoids Screen Neg (NEG) Urine Ethyl Alcohol Pos (NEG) Images Images CT Head without IV contrast INDICATION: fall TECHNIQUE: Multi-detector row CT images were obtained of the head without the use of IV contrast. All CT scans performed at this facility utilize dose optimization techniques as appropriate to the exam, including the following: Automated exposure control and adjustment of the mA and/or KV according to patient size (this includes techniques or standardized protocols for targeted exams where dose is indication/reason for exam). COMPARISON: Noncontrast head CT 07/22/2020 FINDINGS: BRAIN PARENCHYMA: Posterior right temporal lobe intraparenchymal hemorrhage is present along with loss of hughes-white differentiation in the right occipital lobe consistent with an evolving acute ASBESTOS HANDLER territory infarct. Additional areas of abnormal hypoattenuation are present involving the majority of the right cerebral hemisphere, the paracentral superior left frontal lobe, the brainstem and the majority of the left cerebellum. There is subfalcine herniation with 2.6 cm of [id number] midline shift. VENTRICLES & EXTRA-AXIAL SPACES: The right lateral ventricle is almost completely effaced. The left lateral ventricle is slitlike in the body and dilated in the occipital horn. A fluid fluid level is present in the dilated left occipital horn, consistent with evolving blood. The basal cisterns almost completely effaced acute hemorrhage is present in the ambient cisterns there is a 2 cm deep evolving acute subdural hematoma. ORBITS: Orbital contents are unremarkable. SINUSES: Air-fluid levels in the bilateral paranasal sinuses are present. OSSEOUS & SOFT TISSUES: No acute fracture is identified. IMPRESSION: Extensive changes of hypoxic ischemic encephalopathy involving the right greater than left cerebral hemispheres, brainstem and left cerebellum, along with intraparenchymal hemorrhage in the right temporal lobe as well as extensive subarachnoid hemorrhage and a large right subdural hematoma associated with marked right to left midline shift. EXAM: CT Cervical Spine without IV contrast INDICATION: Reason: fall / Spl. Instructions: / History: TECHNIQUE: Multi-detector row CT images were obtained through the cervical spine without the use of IV contrast. Post-processing sagittal and coronal reconstructed images were obtained for interpretation. All CT scans performed at this facility utilize dose optimization techniques as appropriate to the exam, including the following: Automated exposure control and adjustment of the mA and/or KV according to patient size (this includes techniques or standardized protocols for targeted exams where dose is indication/reason for exam). COMPARISON: None FINDINGS: CRANIOCERVICAL JUNCTION: Unremarkable. ALIGNMENT: Alignment is within normal limits. OSSEOUS: No evidence of fracture or bone destruction. DISC SPACES: Degenerative changes at C5-C6. FACET JOINTS: Mild bilateral facet hypertrophy, more conspicuous on the left at the C3-C4 and C4-C5 levels. SPINAL CANAL: Unremarkable. NEUROFORAMINA: Unremarkable. SOFT TISSUES: Patient is intubated and has an enteric tube in place. Coronary calcifications are incidentally noted. IMPRESSION: No acute findings on CT of the cervical spine. EXAM: CT Chest, Abdomen, and Pelvis without IV contrast INDICATION: Reason: fall / Spl. Instructions: / History: TECHNIQUE: Multi-detector row CT images were acquired from the thoracic inlet through the ischial tuberosities with the use of IV contrast. Sagittal and coronal images were acquired from the transaxial data. All CT scans performed at this facility utilize dose optimization techniques as appropriate to the exam, including the following: Automated exposure control and adjustment of the mA and/or KV according to patient size (this includes techniques or standardized protocols for targeted exams where dose is indication/reason for exam). IV CONTRAST: Not administered ORAL CONTRAST: Not administered COMPARISON: None FINDINGS: CHEST: CARDIOVASCULAR: Dense coronary calcifications. Normal heart size. No pericardial effusion. Normal caliber thoracic aorta with scattered calcifications. No aneurysm or intramural hematoma shown. MEDIASTINUM & NATALIE: No adenopathy or masses. Patient is intubated. ET tube terminates 1.8 cm above the eduardo, likely in satisfactory position. LUNGS: Minimal paraseptal pattern emphysematous changes in the upper lobes. Bilateral patchy groundglass opacities. Mild diffuse peribronchial thickening also noted. PLEURAL SPACE: No pleural effusions or pneumothorax. OSSEOUS & SOFT TISSUE: Multiple old anterior left greater than right rib fractures. ABDOMEN/PELVIS: LIVER: Diffuse hypoattenuation, compatible fatty infiltration.. BILIARY SYSTEM: Gallbladder is unremarkable. Bile ducts are not dilated. PANCREAS: Minimal peripancreatic stranding, nonspecific but could reflect pancreatitis in the appropriate clinical context. No ductal dilation. No fluid collection. SPLEEN: Unremarkable ADRENALS: Unremarkable KIDNEYS & URETERS: Unremarkable BLADDER: Contains Murphy catheter, and partially decompressed. REPRODUCTIVE ORGANS: Unremarkable GASTROINTESTINAL: Fluid-filled stomach. Enteric tube terminates in the distal gastric body. Stomach, small bowel, and colon are otherwise unremarkable. The appendix is normal. MESENTERY/PERITONEUM/RETROPERITONEUM: Unremarkable VASCULAR: Scattered arterial calcifications. No aneurysm. LYMPH NODES: No adenopathy OSSEOUS & SOFT TISSUES: Unremarkable IMPRESSION: 1. Multifocal bilateral patchy groundglass opacities in the lungs, nonspecific and could reflect aspiration pneumonitis. Atypical pneumonia is not excluded. 2. Enteric tube placement and endotracheal intubation in apparent satisfactory position. Assessment/Plan Assessment/Plan Impression: Hypoxic ischemic encephalopathy Intraparenchymal hemorrhage of right temporal lobe, extensive subarachnoid hemorrhage, large right subdural hematoma associated with marked right to left midline shift. Alcohol intoxication Recommendations: As per neurosurgery, he is not a candidate for surgery. He is probably going to . Family not available to discuss. Will follow. Thank you for letting me help with the patient's care. TAVON OLEA MD Aug 22, 2020 12:58
[2020-08-22] MEDS ORDERED: PROPOFOL 100 ML IV ONE (13:04)
[2020-08-22 13:21] LABS: MAGNESIUM 3.1 mg/dL (1.8-2.4)
[2020-08-22] MEDS ORDERED: IV NORMAL SALINE 1000ML BAG 1,000 ML IV SCH (13:21)
--- NOTE | 2020-08-22 13:26 | PDOC1 ---
History and Physical Date of Service: DOS: DATE: 08/22/20 TIME: 13:13 Chief Complaint: Chief Complain: Altered mental status and found unresponsive by his friend History of Present Illness: HPI: 64 year old male brought in by EMS from home. Patient's friends found him down in supine position in his home. Patient has a GCS of 3, agonal breathing, signs of prolonged downtime due to multiple pressure sores. History otherwise limited due to acuity of patient's condition. No previous medical history on file, no known family or contacts. ED course: Patient was intubated on upon arrival. Taken for CT of the head and showed Intraparenchymal hemorrhage of right temporal lobe, extensive subarachnoid hemorrhage, large right subdural hematoma associated with marked right to left midline shift. Neurosurgery was consulted and they felt that all measures of surgical intervention was likely unable to help the patient survive. Neurology was then consulted and determined that most of the treatment would likely be futile. Family was unable to be contacted at this time. Upon my examination, patient was already sedated. He has multiple contusions and sores throughout his body that is evidence for prolonged unresponsiveness. Patient did have unequal pupils at this time. Past Medical/Surgical History: PMH/PSH: Unable to obtain due to mental status and intubation Allergies: Allergies: Coded Allergies: Unable to Assess (Unverified , 07/22/20) PT CONFUSED, NOT ANSWERING QUESTIONS AT THIS TIME Family History: Family History: Unable to obtain due to mental status and intubation Social History: Social History: Unable to obtain due to mental status and intubation Current Medications: Current Medications Current Medications Midazolam HCl 100 ml @ 0 mls/hr CONT PRN PRN IV SEE I/O RECORD Last administered on 08/22/20at 11:10; Start 08/22/20 at 11:00 Epinephrine HCl (EPINEPHrine SYRINGE) 1 mg STK-MED ONCE .ROUTE ; Start 08/22/20 at 11:07; Stop 08/22/20 at 11:08; Status DC Norepinephrine Bitartrate 8 mg/ Dextrose 258 ml @ 18.383 mls/ hr CONT PRN PRN IV ELEVATED BP, SEE COMMENTS Last administered on 08/22/20at 11:06; Start 08/22/20 at 10:30 Fentanyl Citrate (Fentanyl 2ml Vial) 50 mcg PRN Q1HR PRN IV PAIN Last administered on 08/22/20at 12:30; Start 08/22/20 at 12:30; Stop 08/23/20 at 12:29 Propofol 100 ml @ As Directed STK-MED ONCE IV ; Start 08/22/20 at 13:04; Stop 08/22/20 at 13:05; Status DC ROS: Review of Systems Review of System REVIEW OF SYSTEMS: GENERAL: Denies weakness SKIN: No bruising, hair changes or rashes. EYES: No blurred, double or loss of vision. NOSE AND THROAT: No history of nosebleeds, hoarseness or sore throat. HEART: No history of palpitations, chest pain or shortness of breath on exertion. LUNGS: Denies cough, hemoptysis, wheezing or shortness of breath. GASTROINTESTINAL: Denies changes in appetite, nausea, vomiting, diarrhea or constipation. GENITOURINARY: No history of frequency, urgency, hesitancy or nocturia. NEUROLOGIC: Denies history of numbness, tingling, or tremor. PSYCHIATRIC: No history of panic, anxiety or depression. ENDOCRINE: No history of heat or cold intolerance, polyuria or polydipsia. EXTREMITIES: Denies joint pain, pain on walking or stiffness. Physical Exam: Vital Signs: Vital Signs Date Time Temp Pulse Resp B/P (MAP) Pulse Ox O2 Delivery O2 Flow Rate FiO2 08/22/20 12:40 96 Ventilator 08/22/20 12:30 30 08/22/20 10:26 85.8 64 111/62 (78) 15.0 85.8 Physcial Exam: GEN: Intubated and sedated HEENT: Normal cephalic, atraumatic, external auditory canals are patent EYES: Pupils are unequal with right greater than left. Conjunctival hemorrhage on the right eye. MUSCULOSKELETAL: Well developed , well nourished, good range of motion ENDOCRINE: No thyromegaly was palpated LYMPHATICS: No cervical chain or axillary nodes were noted HEMATOPOIETIC: No bruising NECK: Supple, no JVD, no thyromegaly was noted LUNGS: Clear to auscultation in all lung scott without rhonchi or wheezing HEART: RRR, S!, S2 present. Peripheral pulses intact, no obvious murmurs noted ABDOMEN: Soft, nontender. Positive bowel sounds, no organomegaly, normal bowel sounds EXTREMITIES: Ecchymosis of the right shoulder NEUROLOGIC: Normal speech and tone. A&O x 3, moves all extremities, no obvi ous focal deficits PSYCHIATRIC: Normal affect, normal mood. Stable SKIN: No ulcerations or rashes, good skin turgor, no jaundice VASCULAR: Good capillary refill, neurovascular bundle appears to be intact Labs: Labs: Laboratory Tests Test 08/22/20 10:31 08/22/20 10:40 White Blood Count 5.6 x10^3/uL (4.0-11.0) Red Blood Count 3.91 x10^6/uL (4.30-5.70) Hemoglobin 11.8 g/dL (13.0-17.5) Hematocrit 36.3 % (39.0-53.0) Mean Corpuscular Volume 93 fL (79-100) Mean Corpuscular Hemoglobin 30 pg (25-35) Mean Corpuscular Hemoglobin Concent 33 g/dL (31-37) Red Cell Distribution Width 15.2 % (11.5-14.5) Platelet Count 114 x10^3/uL (140-400) Neutrophils (%) (Auto) 81 % (31-73) Lymphocytes (%) (Auto) 10 % (24-48) Monocytes (%) (Auto) 8 % (0-9) Eosinophils (%) (Auto) 0 % (0-3) Basophils (%) (Auto) 1 % (0-3) Neutrophils # (Auto) 4.6 x10^3/uL (1.8-7.7) Lymphocytes # (Auto) 0.5 x10^3/uL (1.0-4.8) Monocytes # (Auto) 0.5 x10^3/uL (0.0-1.1) Eosinophils # (Auto) 0.0 x10^3/uL (0.0-0.7) Basophils # (Auto) 0.1 x10^3/uL (0.0-0.2) Prothrombin Time 15.4 SEC (11.7-14.0) Prothromb Time International Ratio 1.3 (0.8-1.1) Sodium Level 128 mmol/L (136-145) Potassium Level 4.1 mmol/L (3.5-5.1) Chloride Level 84 mmol/L (98-107) Carbon Dioxide Level 7 mmol/L (21-32) Anion Gap 37 (6-14) Blood Urea Nitrogen 48 mg/dL (8-26) Creatinine 2.5 mg/dL (0.7-1.3) Estimated GFR (Cockcroft-Gault) 26.1 BUN/Creatinine Ratio 19 (6-20) Glucose Level 169 mg/dL (70-99) Lactic Acid Level 6.8 mmol/L (0.4-2.0) Calcium Level 7.6 mg/dL (8.5-10.1) Total Bilirubin 0.9 mg/dL (0.2-1.0) Aspartate Amino Transf (AST/SGOT) 471 U/L (15-37) Alanine Aminotransferase (ALT/SGPT) 126 U/L (16-63) Alkaline Phosphatase 90 U/L (46-116) Ammonia 73 mcmol/L (11-34) Troponin I Quantitative 0.062 ng/mL (0.000-0.055) Total Protein 6.4 g/dL (6.4-8.2) Albumin 3.4 g/dL (3.4-5.0) Albumin/Globulin Ratio 1.1 (1.0-1.7) Urine Collection Type Unknown Urine Color Ro Urine Clarity Clear Urine pH 5.5 (<5.0-8.0) Urine Specific [place] 1.015 (1.000-1.030) Urine Protein 100 mg/dL (NEG-TRACE) Urine Glucose (UA) Negative mg/dL (NEG) Urine Ketones (Stick) 15 mg/dL (NEG) Urine Blood Large (NEG) Urine Nitrite Negative (NEG) Urine Bilirubin Negative (NEG) Urine Urobilinogen Dipstick 1.0 mg/dL (0.2 mg/dL) Urine Leukocyte Esterase Negative (NEG) Urine RBC 6-10 /HPF (0-2) Urine WBC 0 /HPF (0-4) Urine Bacteria 0 /HPF (0-FEW) Urine Opiates Screen Neg (NEG) Urine Methadone Screen Neg (NEG) Urine Barbiturates Neg (NEG) Urine Phencyclidine Screen Neg (NEG) Urine Amphetamine/Methamphetamine Neg (NEG) Urine Benzodiazepines Screen Neg (NEG) Urine Cocaine Screen Neg (NEG) Urine Cannabinoids Screen Neg (NEG) Urine Ethyl Alcohol Pos (NEG) Laboratory Tests Test 08/22/20 10:31 08/22/20 10:40 White Blood Count 5.6 x10^3/uL (4.0-11.0) Red Blood Count 3.91 x10^6/uL (4.30-5.70) Hemoglobin 11.8 g/dL (13.0-17.5) Hematocrit 36.3 % (39.0-53.0) Mean Corpuscular Volume 93 fL (79-100) Mean Corpuscular Hemoglobin 30 pg (25-35) Mean Corpuscular Hemoglobin Concent 33 g/dL (31-37) Red Cell Distribution Width 15.2 % (11.5-14.5) Platelet Count 114 x10^3/uL (140-400) Neutrophils (%) (Auto) 81 % (31-73) Lymphocytes (%) (Auto) 10 % (24-48) Monocytes (%) (Auto) 8 % (0-9) Eosinophils (%) (Auto) 0 % (0-3) Basophils (%) (Auto) 1 % (0-3) Neutrophils # (Auto) 4.6 x10^3/uL (1.8-7.7) Lymphocytes # (Auto) 0.5 x10^3/uL (1.0-4.8) Monocytes # (Auto) 0.5 x10^3/uL (0.0-1.1) Eosinophils # (Auto) 0.0 x10^3/uL (0.0-0.7) Basophils # (Auto) 0.1 x10^3/uL (0.0-0.2) Prothrombin Time 15.4 SEC (11.7-14.0) Prothromb Time International Ratio 1.3 (0.8-1.1) Sodium Level 128 mmol/L (136-145) Potassium Level 4.1 mmol/L (3.5-5.1) Chloride Level 84 mmol/L (98-107) Carbon Dioxide Level 7 mmol/L (21-32) Anion Gap 37 (6-14) Blood Urea Nitrogen 48 mg/dL (8-26) Creatinine 2.5 mg/dL (0.7-1.3) Estimated GFR (Cockcroft-Gault) 26.1 BUN/Creatinine Ratio 19 (6-20) Glucose Level 169 mg/dL (70-99) Lactic Acid Level 6.8 mmol/L (0.4-2.0) Calcium Level 7.6 mg/dL (8.5-10.1) Total Bilirubin 0.9 mg/dL (0.2-1.0) Aspartate Amino Transf (AST/SGOT) 471 U/L (15-37) Alanine Aminotransferase (ALT/SGPT) 126 U/L (16-63) Alkaline Phosphatase 90 U/L (46-116) Ammonia 73 mcmol/L (11-34) Troponin I Quantitative 0.062 ng/mL (0.000-0.055) Total Protein 6.4 g/dL (6.4-8.2) Albumin 3.4 g/dL (3.4-5.0) Albumin/Globulin Ratio 1.1 (1.0-1.7) Urine Collection Type Unknown Urine Color Ro Urine Clarity Clear Urine pH 5.5 (<5.0-8.0) Urine Specific [place] 1.015 (1.000-1.030) Urine Protein 100 mg/dL (NEG-TRACE) Urine Glucose (UA) Negative mg/dL (NEG) Urine Ketones (Stick) 15 mg/dL (NEG) Urine Blood Large (NEG) Urine Nitrite Negative (NEG) Urine Bilirubin Negative (NEG) Urine Urobilinogen Dipstick 1.0 mg/dL (0.2 mg/dL) Urine Leukocyte Esterase Negative (NEG) Urine RBC 6-10 /HPF (0-2) Urine WBC 0 /HPF (0-4) Urine Bacteria 0 /HPF (0-FEW) Urine Opiates Screen Neg (NEG) Urine Methadone Screen Neg (NEG) Urine Barbiturates Neg (NEG) Urine Phencyclidine Screen Neg (NEG) Urine Amphetamine/Methamphetamine Neg (NEG) Urine Benzodiazepines Screen Neg (NEG) Urine Cocaine Screen Neg (NEG) Urine Cannabinoids Screen Neg (NEG) Urine Ethyl Alcohol Pos (NEG) Images: Images CT HEAD IMPRESSION: Extensive changes of hypoxic ischemic encephalopathy involving the right greater than left cerebral hemispheres, brainstem and left cerebellum, along with intraparenchymal hemorrhage in the right temporal lobe as well as extensive subarachnoid hemorrhage and a large right subdural hematoma associated with marked right to left midline shift. CT CHEST/ABD/PELVIS IMPRESSION: 1. Multifocal bilateral patchy groundglass opacities in the lungs, nonspecific and could reflect aspiration pneumonitis. Atypical pneumonia is not excluded. 2. Enteric tube placement and endotracheal intubation in apparent satisfactory position. Assessment/Plan Assessment/Plan Acute toxic encephalopathy EtOH abuse Lactic acidosis with anion gap Acute electrolyte derangement suggestive of volume depletionhyponatremia MUNIR due to vasomotor nephropathy Intraparenchymal hemorrhage of right temporal lobe, extensive subarachnoid hemorrhage, large right subdural hematoma associated with marked right to left midline shift. Admit to ICU for vent management Neurology consult We will attempt to contact family for CODE STATUS and goals of care Contraindicated for DVT prophylaxis Protonix GI prophylaxis ADA diet Full code Discussed with RN and SW Disposition ICU care Surrogate decision maker is unknown at this time A total of 70 minutes of critical care time was spent in reviewing chart, labs, and images. Discussed with RN and SW. Justifications for Admission Other Justification EMILY MOORE MD Aug 22, 2020 13:26
[2020-08-22] MEDS ORDERED: DEXTROSE 50% 25 GM / 50ML DISP.SYRIN. IV PRN (13:30)
[2020-08-22] MEDS ORDERED: PROPOFOL 100 ML IV PRN (13:30)
[2020-08-22] MEDS ORDERED: ONDANSETRON PF 4 MG/2 ML VIAL. IVP PRN (13:30)
[2020-08-22 14:15] VITALS: BP 143/72
[2020-08-22 14:30] VITALS: BP 146/67
[2020-08-22] MEDS ORDERED: MIDAZOLAM HCL/PF 5 MG/5 ML VIAL. ONE (14:46)
[2020-08-22] MEDS ORDERED: ETOMIDATE 20 MG/10 ML VIAL. IV ONE (14:46)
[2020-08-22 15:27] VITALS: BP 106/57
[2020-08-22] MEDS ORDERED: VASOPRESSIN 20 UNIT in IV DEXTROSE 5% 100ML 100 ML IV PRN (16:30)
[2020-08-22 16:34] LABS: BASE EXCESS ABG -26 mmol/L (-3-3); HCO3 ABG 9 mmol/L (21-28); PCO2 ABG 54 mmHg (35-46)
[2020-08-22 17:00] VITALS: BP 83/53
[2020-08-22 17:12] LABS: PO2 ABG < 42 mmHg (65-108)
[2020-08-22 17:13] LABS: SAT O2 ABG 22 % (92-99)
[2020-08-22] MEDS ORDERED: FAMOTIDINE 20 MG/2 ML VIAL IVP SCH (21:00)
[2020-08-23] MEDS ORDERED: PANTOPRAZOLE IV PUSH 40 MG VIAL. IVP SCH (07:30)
== END 2020-08-22 23:47 | DRG 85 ==
LOC: ER 10:26 → 1 WEST ICU 12:18
PROVIDERS: ADMIT Internal Medicine; ATTEND Internal Medicine
PROC: 5A1935Z Respiratory Ventilation, Less than 24 Consecutive Hours (ICD-10-PCS; principal; 2020-08-22)
PROC: 0BH17EZ Insertion of Endotracheal Airway into Trachea, Via Natural or Artificial Opening (ICD-10-PCS; 2020-08-22)
DX: S06.5X0A Traumatic subdural hemorrhage without loss of consciousness, initial encounter (principal); G92 Toxic encephalopathy; N17.0 Acute kidney failure with tubular necrosis; E87.2 Acidosis; G93.1 Anoxic brain damage, not elsewhere classified; F10.129 Alcohol abuse with intoxication, unspecified; Z20.828 Contact with and (suspected) exposure to other viral communicable diseases; Y90.5 Blood alcohol level of 100-119 mg/100 ml; W18.30XA Fall on same level, unspecified, initial encounter; S06.6X0A Traumatic subarachnoid hemorrhage without loss of consciousness, initial encounter; Z66 Do not resuscitate; I46.9 Cardiac arrest, cause unspecified; Z59.0 Homelessness; Y93.89 Activity, other specified; Y92.89 Other specified places as the place of occurrence of the external cause; Y99.8 Other external cause status
CPT/HCPCS: 31500; 36415; 36600; 51702; 70450; 71045; 71250; 72125; 74176; 80053; 80307; 81001; 82140; 82550; 82805; 83605; 83735; 83874; 83880; 84100; 84484; 85025; 85610; 93005; 94002; 96361; 96374; 99291; G0480; J2250; J2704; J3010; J3490; J7030; J7060; U0003; G0378